=== PATIENT | female | born 1955 | race Caucasian/White ===

== ENCOUNTER → 2020-06-24 09:56 | Outpatient (BNVA) | payer MEDICARE, SELFPAY | PROVIDERS: Family Provider Nurse Practitioner; Visit Provider Nurse Practitioner Family | DX: M25.532 Pain in left wrist (principal); S62.102A Fracture of unspecified carpal bone, left wrist, initial encounter for closed fracture; W07.XXXA Fall from chair, initial encounter; Z68.33 Body mass index [BMI] 33.0-33.9, adult | CPT/HCPCS: 73110 ==

== ENCOUNTER 2022-11-27 14:47 | Outpatient (CLI) | payer MEDICARE, SELFPAY ==
--- NOTE | 2022-11-27 15:05 | USCV_ITS ---
Esther Capellan Age: 67 Gender: F : 1955 Exam Date: 11/27/2022 15:23 Ordering Phys: Nuris Odonnell INTERNET TECHNOLOGY MANAGER INTERNET TECHNOLOGY MANAGER Technologist: TIFFANY Exam Location: [facility] [place]ication: Dizziness Risk Factors: Previous Vascular Surgery: Right Brachial BP: / Left Brachial BP: / Right Left Velocity (cm/s) Spectral Plaque Velocity (cm/s) Spectral Plaque Syst/Diast Broadening Syst/Diast Broadening 74.90/ 17.70 Prox CCA 105.80/ 25.40 57.30/ 21.40 Mid CCA 101.40/ 34.20 79.50/ 30.60 Distal CCA 79.40 / 23.20 45.00/ 16.10 Prox ICA 55.20 / 17.60 45.00/ 20.80 Mid ICA 78.20 / 33.70 60.20/ 29.60 Distal ICA 85.10 / 33.00 55.00 ECA 76.10 0.76 ICA/CCA 0.80 Antegrade Vertebral Antegrade 36.30/ 11.70 cm/s 61.70/ 19.80 cm/s Tri Subclavian Tri 138.5 100.0 0 0 FINDINGS Comparison: none available. No significant elevation of systolic or diastolic velocities. Waveforms are normal. No significant amount of calcified plaque or intimal thickening identified. CONCLUSIONS Normal carotid doppler ultrasound. Dr. Sunshine Vega DO (Electronically Signed) Final Date: 27 November 2022 15:53 S
== END 2022-11-27 14:48 | disposition home or self-care (01) ==
PROVIDERS: Family Provider Nurse Practitioner; Visit Provider Nurse Practitioner Family
DX: R42 Dizziness and giddiness (principal)
CPT/HCPCS: 93880